=== PATIENT | male | born 1970 | race Caucasian/White ===

== ENCOUNTER → 2016-09-23 | Outpatient (CLI) | payer OTHER ==
--- NOTE | 2016-09-23 20:27 | CONS ---
DATE OF CONSULTATION: Primary care physician is Dr. Marcel Delacruz. REASON FOR EVALUATION: Sleep apnea. 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 His unfortunately was recently diagnosed with glioblastoma multiforme and he was going through some rough time as his is being treated for this type of cancer. He has been told by his that he stops breathing and he quits breathing on multiple occasions throughout the night. He snores and he is sleepy all the time. He can fall asleep easily with an Adrian score of 19. He goes to bed around 11:00, wakes up at 4:30 a.m. On weekends he sleeps between 11:00 p.m. and 8:00 a.m. in the morning. His weight has been stable. No substance abuse, no alcoholism. No smoking. No history of falling asleep while driving a car and is able to fulfill his job requirements without any major difficulties. No restlessness in the lower extremities. He is a nose breather. No sinus allergies or nasal plugging or postnasal drainage. No bruxism. No sleepwalking or sleeptalking. PAST MEDICAL HISTORY: Hypertension, hyperlipidemia, gout. PAST SURGICAL HISTORY: A removal of a mole from the skin. ALLERGIES: PENICILLIN. Outpatient medication list includes: Allopurinol, losartan, Lipitor and Centrum. SOCIAL HISTORY: Nonsmoker. No history of alcohol, no history of IV drugs. The patient is an electrician chief. FAMILY HISTORY: has glioblastoma multiforme. REVIEW OF SYSTEMS: Twelve-point review of systems was done and the positive findings were all mentioned above in the history of present illness. BP is 122/78, pulse 93, respirations 16, temperature 98.4, saturation 95% on room air. Neck size 17-3/4. BMI is 30.4. Adrian score is 19. GENERAL APPEARANCE: Calm, comfortable. HEENT: Mallampati class IV. No goiter or neck masses. LUNGS: Clear to auscultation. HEART: Sounds are regular rate and rhythm. Normal S1, S2. ABDOMEN: Soft, nontender, no organomegaly. EXTREMITIES: No edema. No cyanosis or clubbing. IMPRESSION: 1. Obstructive sleep apnea, clinically suspected. 2. Loud snoring. 3. Witnessed apneas. 4. Hypersomnia. Adrian score of 19. 5. Hypertension. 6. Hyperlipidemia. 7. Gout. PLAN: Proceed with a screening polysomnogram.
== END ==
LOC: SLEEP 14:43
PROVIDERS: ATTEND Internal Medicine Critical Care Medicine
DX: G47.33 Obstructive sleep apnea (adult) (pediatric) (principal); G47.10 Hypersomnia, unspecified; I10 Essential (primary) hypertension; M10.9 Gout, unspecified; E78.5 Hyperlipidemia, unspecified; Z88.0 Allergy status to penicillin; Z79.899 Other long term (current) drug therapy
CPT/HCPCS: 99211

== ENCOUNTER → 2023-09-30 | Outpatient (CLI) | payer OTHER ==
--- NOTE | 2023-10-01 11:13 | CA ---
Transthoracic Echo Report Name: Harvey Vuong Age: 53 Gender: M : 1970 Exam Date: 09/30/2023 17:50 Exam Location: [facility] Ht (in): 71 Wt (lb): 215 Ordering Physician: Brian Bal MD Attending/Referring Phys: Brand Manager Rosio Ryder RDCS Procedure CPT: Indications: Z82.49 FAM HX ISCHEMIC HEART DISEASE Cardiac Hx: Technical Quality: Good Contrast 1: Total Dose (mL): Contrast 2: Total Dose (mL): MEASUREMENTS (Male / Female) Normal Values 2D ECHO LV Diastolic Diameter PLAX 4.7 cm 4.2 - 5.9 / 3.9 - 5.3 cm LV Systolic Diameter PLAX 3.4 cm IVS Diastolic Thickness 1.1 cm 0.6 - 1.0 / 0.6 - 0.9 cm LVPW Diastolic Thickness 1.3 cm 0.6 - 1.0 / 0.6 - 0.9 cm LV Relative Wall Thickness 0.5 RV Internal Dim ED PLAX 3.4 cm LA Systolic Diameter LX 3.3 cm 3.0 - 4.0 / 2.7 - 3.8 cm LV Diastolic Volume MOD 4C 96.8 cm??? LV Systolic Volume MOD 4C 48.3 cm??? LV Ejection Fraction MOD 4C 50.1 % LV Cardiac Index MOD 4C 1564.5 cm???/min???m??? LV Diastolic Length 4C 8.5 cm LV Systolic Length 4C 7.4 cm LV Diastolic Volume MOD 2C 53.7 cm??? LV Systolic Volume MOD 2C 22.4 cm??? LV Ejection Fraction MOD 2C 58.2 % LV Cardiac Index MOD 2C 1007.8 cm???/min???m??? LV Diastolic Length 2C 7.9 cm LV Systolic Length 2C 6.8 cm M-MODE Aortic Root Diameter MM 3.9 cm LA Systolic Diameter MM 2.3 cm LA Ao Ratio MM 0.6 AV Cusp Separation MM 2.3 cm DOPPLER AV Peak Velocity 118.0 cm/s AV Peak Gradient 5.6 mmHg Mitral E Point Velocity 75.7 cm/s Mitral A Point Velocity 65.9 cm/s Mitral E to A Ratio 1.1 MV Deceleration Time 205.1 ms MV E' Velocity 6.7 cm/s Mitral E to MV E' Ratio 11.2 TR Peak Velocity 201.7 cm/s TR Peak Gradient 16.3 mmHg Right Ventricular Systolic Press 26.3 mmHg FINDINGS Left Ventricle Left ventricular ejection fraction is estimated at 55-60 %. Left ventricular cavity size normal. Mildly increased septal wall thickness. Normal left ventricular wall motion. Right Ventricle Mild right ventricular dilatation. Right ventricular systolic pressure within normal limits. Right Atrium Normal right atrial size. No right atrial thrombus or mass seen. Left Atrium Normal left atrial size. No left atrial thrombus or mass present. Mitral Valve Structurally normal mitral valve. No mitral stenosis, regurgitation or prolapse. Aortic Valve Trileaflet aortic valve. No aortic valve stenosis or regurgitation. Tricuspid Valve Structurally normal tricuspid valve. Mild tricuspid regurgitation. Pulmonic Valve Structurally normal pulmonic valve. Trace pulmonic regurgitation. Pericardium No pericardial effusion. Aorta Mild aortic dilatation at the level of the sinuses of valsalva 39 mm. Anurysmal descending AO 44 mm in diameter CONCLUSIONS Normal biventricular dimensions and systolic function Previewed by: Dr. Alexander Fernandez MD (Electronically Signed) Final Date: 01 October 2023 11:12
== END | disposition home or self-care (01) ==
LOC: RADECHMAIN 17:40
PROVIDERS: ATTEND Internal Medicine
DX: I71.21 Aneurysm of the ascending aorta, without rupture (principal); Z82.49 Family history of ischemic heart disease and other diseases of the circulatory system
CPT/HCPCS: 93306